=== PATIENT | female | born 1960 | race Caucasian/White ===

== ENCOUNTER → 2016-08-09 | Outpatient (CLI) | payer OTHER ==
--- NOTE | 2016-08-09 15:14 | P.HPIM ---
History of Present Illness H&P Date: 08/09/16 Chief Complaint: neck and low back and hip pain This is a 56-year-old patient referred by Dr. Coffey for chronic pain in neck, low back, and hips. Patient has been taking medications from primary care physician including [place] medications with some relief. Patient complains of numbness/tingling in hands, arms, and feet, and it worsens with standing Patient denies adverse drug effects from medications. Patient also denies new- onset weakness, bowel/bladder incontinence, or any other signs or symptoms of cauda equina syndrome. There are no signs of acute intoxication, and no indications of medication diversion or overuse. Patient notes that pain worsens significantly with standing, sitting, walking, and improves with ice and medication ([place]). Patient has used several types of medications for pain, including NSAIDS, OPIOIDS ([place], Percocet), TRAMADOL Patient HAS NOT had surgery. Patient HAS NOT had injections previously. Patient HAS NOT had physical therapy recently. In addition to above, 13-point review of systems is also negative for chest pain , shortness of breath, changes in vision, changes in hearing, new onset weakness , abdominal pain, diarrhea, extreme fatigue, malaise, fever, skin changes, homicidal or suicidal ideation, or bowel or bladder incontinence. Vital Signs: Reviewed in EMR Gen: WDWN, AAOx3, NAD, in wheelchair HEENT: NCAT, EOMI, hearing grossly normal Pulm: resp unlabored Abd: soft, NT, ND, obese Neck: supple, trachea midline ROM in flexion lumbar spine: reduced ROM in extension lumbar spine: reduced Lumbar paravertebral tenderness: + Facet loading: + bilateral, L > R SI joint tenderness: neg Doug's test: + bilateral, L > R Straight leg raise: + RLE at 15 degrees Neuro: CN II-XII grossly intact Medications and Allergies Allergies Allergy/AdvReac Type Severity Reaction Status Date / Time aspirin Allergy Severe Anaphylaxis Verified 08/09/16 14:59 bacitracin Allergy Severe Anaphylaxis Verified 08/09/16 14:59 [From Neosporin ([id number])] latex Allergy Severe Itching Verified 08/09/16 14:59 neomycin Allergy Severe Anaphylaxis Verified 08/09/16 14:59 [From Neosporin ([id number])] polymyxin B Allergy Severe Anaphylaxis Verified 08/09/16 14:59 [From Neosporin ([id number])] Sulfa (Sulfonamide Allergy Severe Anaphylaxis Verified 08/09/16 14:59 Antibiotics) Assessment and Plan (1) Lumbar spinal stenosis Status: Chronic (2) Spondylosis of lumbar region without myelopathy or radiculopathy Status: Chronic (3) Lumbar radiculopathy Status: Chronic (4) Chronic pain syndrome Status: Chronic Plan: 1. Explanation: Opioid and psychological risk scores were reviewed. Diagnoses , prognoses, and multiple treatment options including but not limited to physical therapy, interventional therapies, adjuvant medical therapies, narcotic medication therapies, and surgery were discussed with the patient and all questions were answered to the patient's satisfaction. 2. Opioid agreement: no opioids prescribed today 3. Counseling: The patient was counseled extensively on BODY MASS INDEX, EXERCISE. Specifically, the patient was instructed regarding the importance of smoking cessation, obesity, and exercise in the context of both chronic pain and overall health. 4. Procedures: none for now, patient anticoagulated with Coumadin secondary to recent DVT 5. Consultations: none 6. Investigations: none 7. Medications: none prescribed 8. Disposition: f/u as needed. Patient cannot undergo any interventions secondary to current anticoagulation due to recent DVT. PQRS measures: 1-Patient's medications are documented in the chart. 2-Tobacco use is positive, counseling given 3-Patient has not had a pneumococcal vaccine. 4-Advanced care planning discussed, patient unable to give. 5-Opioid contract NOT signed with the patient. 6-Pain positive, follow-up visit or procedure scheduled 7-Patient's blood pressure measured and documented, and patient will follow up with the primary care due to hypertension. 8-Patient's weight was measured, and body mass index ABOVE the normal limits, and counseling was done. Patient instructed to follow up with PCP. 9-Patient WAS NOT identified as an unhealthy alcohol user. Time with Patient: Less than 30
[2016-08-09 15:41] VITALS: BP 133/87; PULSE 115; RESP 16; TEMP 97.4
== END | disposition home or self-care (01) ==
LOC: PNWHC3 14:37
PROVIDERS: ATTEND Anesthesiology
DX: M48.06 Spinal stenosis, lumbar region (principal); M47.26 Other spondylosis with radiculopathy, lumbar region; G89.4 Chronic pain syndrome
CPT/HCPCS: 99201